=== PATIENT | male | born 1970 | race Hispanic/Latino ===

== ENCOUNTER 2018-06-18 16:05 | Inpatient (IN) | payer OTHER ==
[~2018-06-18] VITALS: Ht 170.2 cm; Wt 118.4 kg
[2018-06-18 16:25] LABS: BASOPHILS % (AUTO) 0.8 % (0.0-5.0); EOSINOPHILS % (AUTO) 2.1 % (0.0-8.0); LYMPHOCYTES % (AUTO) 42.3 % (21.0-51.0); MEAN CORPUSCULAR HEMOGLOBIN 22.8 pg (27.0-33.0); MEAN CORPUSCULAR HGB CONC 30.1 g/dL (32.0-36.0); MEAN CORPUSCULAR VOLUME 75.5 fL (79-99); MONOCYTES % (AUTO) 11.5 % (3.0-13.0); NEUTROPHILS % (AUTO) 43.3 % (40.0-77.0); NUCLEATED RED BLOOD CELLS 0.2 % (0.0-0.19); PLATELET COUNT (AUTO) 166 K/uL (130-400); RED BLOOD CELL COUNT(AUTO) 2.76 MIL/uL (4.50-6.20); RED CELL DISTRIBUTION WIDTH 20.9 % (11.0-15.5); WHITE BLOOD COUNT (AUTO) 5.4 K/uL (4.8-10.8)
[2018-06-18 16:31] LABS: HEMATOCRIT 20.8 % (42-54)
[2018-06-18 16:37] LABS: CREATININE 0.8 mg/dL (0.5-1.5); POTASSIUM 3.3 mmol/L (3.5-5.1)
[2018-06-18 16:44] LABS: ALBUMIN 3.1 g/dL (3.5-5.0); BILIRUBIN,TOTAL 0.8 mg/dL (0.2-1.0); TOTAL PROTEIN, SERUM 8.3 g/dL (6.0-8.3)
[2018-06-18 17:13] LABS: INR 1.2 (0.85-1.15); PARTIAL THROMBOPLASTIN TIME 26.5 SEC (26.3-35.5); PROTHROMBIN TIME 12.6 SEC (9.6-11.6)
[2018-06-18] MEDS ORDERED: FUROSEMIDE 10 MG/ML 4ML VIAL ONE (17:36)
[2018-06-18] MEDS: LACTATED RINGERS 1000ML 1,000 ML IV SCH (18:51)
[2018-06-18] MEDS ORDERED: ONDANSETRON HCL 4 MG/2 ML VIAL IV PRN (19:00)
[2018-06-18] MEDS ORDERED: PANTOPRAZOLE SODIUM 80 MG in SODIUM CHLORIDE 0.9% 100 ML IV SCH (19:16)
[2018-06-18 19:34] LABS: APPEARANCE,URINE Clear (CLEAR); BILIRUBIN,URINE Negative (NEGATIVE); GLUCOSE, URINE (UA) Negative (NEGATIVE); KETONES,URINE Negative (NEGATIVE); LEUKOCYTE ESTERASE ,URINE Negative (NEGATIVE); NITRATE,URINE Negative (NEGATIVE); OCCULT BLOOD,URINE Negative (NEGATIVE); PROTEIN,URINE Negative (NEGATIVE); UROBILINOGEN,URINE 0.2 mg/dL (0.2-1.0)
[2018-06-18 19:36] LABS: COLOR,URINE COLORLESS (YELLOW)
[2018-06-18 19:41] LABS: AMPHET/METH SCREEN,URINE NEGATIVE (NEGATIVE); BARBITURATE SCREEN, URINE NEGATIVE (NEGATIVE); BENZODIAZEPINES SCREEN,URINE NEGATIVE (NEGATIVE); CANNABINOID SCREEN,URINE NEGATIVE (NEGATIVE); COCAINE SCREEN,URINE NEGATIVE (NEGATIVE); OPIATE SCREEN,URINE NEGATIVE (NEGATIVE); PHENCYCLIDINE SCREEN,URINE NEGATIVE (NEGATIVE)
[2018-06-18] MEDS: OSELTAMIVIR PHOSPHATE 75 MG CAP PO SCH (21:00)
[2018-06-18] MEDS ORDERED: OSELTAMIVIR PHOSPHATE 75 MG CAP ONE (22:52)
[2018-06-18 23:42] VITALS: BP 133/74
[2018-06-19] VITALS (29 sets, daily range): BP systolic 111–174; BP diastolic 55–108
[2018-06-19] MEDS ORDERED: DIPH25TA20 PO (00:24)
[2018-06-19] MEDS ORDERED: PHEN177S35 MM (00:24)
[2018-06-19] MEDS ORDERED: ESCI5TAB10 PO (00:24)
[2018-06-19] MEDS ORDERED: NYST100P2 MC (00:24)
[2018-06-19] MEDS ORDERED: FURO40TA5 PO (00:24)
[2018-06-19] MEDS ORDERED: TRAZ-185 PO (00:24)
[2018-06-19] MEDS ORDERED: METO25TA6 PO (00:24)
[2018-06-19] MEDS ORDERED: FOLI1TAB15 PO (00:24)
[2018-06-19] MEDS ORDERED: GABA-531 PO (00:24)
[2018-06-19] MEDS ORDERED: HYDR-3421 PO (00:24)
[2018-06-19] MEDS ORDERED: SPIR25TA6 PO (00:24)
[2018-06-19] MEDS ORDERED: SODIUM CHLORIDE 0.9% 100 ML IV ONE (01:12)
[2018-06-19] MEDS: LACTATED RINGERS 1000ML 1,000 ML IV SCH ×3 (01:34→15:01)
[2018-06-19] MEDS: DIAZEPAM 5 MG TABLET PO PRN ×2 (04:01→09:12)
[2018-06-19 06:21] LABS: HEMATOCRIT 23.1 % (42-54)
[2018-06-19 06:29] LABS: CREATININE 0.7 mg/dL (0.5-1.5)
[2018-06-19 06:31] LABS: POTASSIUM 2.9 mmol/L (3.5-5.1)
[2018-06-19] MEDS: POTASSIUM CHLORIDE 20MEQ/100ML 100 ML IV PRN ×2 (06:39→09:13)
[2018-06-19] MEDS ORDERED: LIDOCAINE HCL-MPF 1% 2ML VIAL IVP PRN ×3 (06:45→08:00)
[2018-06-19] MEDS ORDERED: POTASSIUM CHLORIDE 20 MEQ ERTAB PO PRN ×2 (08:00)
[2018-06-19] MEDS ORDERED: POTASSIUM CHLORIDE 10% ELIXIR 20 MEQ/15 ML UDCUP PO PRN (08:00)
[2018-06-19] MEDS ORDERED: POTASSIUM CHLORIDE 20MEQ/100ML 100 ML IV PRN (08:00)
[2018-06-19] MEDS ORDERED: POTASSIUM CHLORIDE 10MEQ/100ML 100 ML IV PRN (08:00)
--- NOTE | 2018-06-19 08:30 | NUR ---
Dr. Richards returned consult page and was updated on patients status. He ordered to keep patient NPO and schedule him for an egd at 1300.
[2018-06-19] MEDS ORDERED: M.V.I. IV [ADULT] 10 ML, FOLIC ACID 1 MG, THIAMINE HCL 100 MG in SODIUM CHLORIDE 0.9% 1... IV SCH (09:00)
[2018-06-19] MEDS: OSELTAMIVIR PHOSPHATE 75 MG CAP PO SCH ×2 (09:13→21:15)
--- NOTE | 2018-06-19 09:36 | NUR ---
PATIENT CURRENTLY NPO PENDING GI CONSULT. PER NURSE PEREZ, WILL NOTIFY SPEECH THERAPY FOLLOWING RESULTS/RECOMMENDATIONS OF GI CONSULT. Addendum: 06/19/[address] [facility] Amended: Links added.
--- NOTE | 2018-06-19 11:02 | NUR ---
RD Notification received. Patient with GI Bleed. Patient NPO pending GI consult. Patient with morbid obesity with BMI of 40.9. Patient monitored labs: K 2.9, BUN 5. Patient LBM 06/18/18. RD to continue to monitor. Please notify RD as nutritional concerns arise. Thank you. Addendum: 06/19/18 at [address] Amended: Links added.
[2018-06-19] MEDS ORDERED: LORAZEPAM 2 MG/ML 1 ML VIAL IVP PRN (11:45)
--- NOTE | 2018-06-19 12:30 | NUR ---
Patient was taken to endoscopy. Patient stable on RA.
[2018-06-19] MEDS ORDERED: PROPOFOL 10 MG/ML 20ML VIAL IV ONE (14:57)
--- NOTE | 2018-06-19 15:30 | NUR ---
Report received from Joelle Macias RN in endoscopy. Interventions included ligation of esophageal varices. Patient will be on clear liquid diet. She was updated that patient will be going up to room 418. Report was given to Lena Del Rio in 4th floor. Fluids where taken up promptly as well as patients belongings. Helped Lena set up patient. Patient was stable on room air and was able to ambulate to his new bed.
[2018-06-19] MEDS: PROPRANOLOL HCL 10 MG TAB PO SCH (21:15)
[2018-06-19] MEDS: ACETAMINOPHEN 325 MG TAB PO PRN (21:16)
[2018-06-20] VITALS (7 sets, daily range): BP systolic 110–138; BP diastolic 53–74
[2018-06-20 04:26] LABS: BASOPHILS % (AUTO) 0.7 % (0.0-5.0); HEMATOCRIT 23.3 % (42-54); LYMPHOCYTES % (AUTO) 27.1 % (21.0-51.0); MEAN CORPUSCULAR HEMOGLOBIN 24.6 pg (27.0-33.0); MEAN CORPUSCULAR HGB CONC 31.6 g/dL (32.0-36.0); MONOCYTES % (AUTO) 9.7 % (3.0-13.0); NEUTROPHILS % (AUTO) 60.5 % (40.0-77.0); NUCLEATED RED BLOOD CELLS 0.1 % (0.0-0.19); PLATELET COUNT (AUTO) 114 K/uL (130-400); RED BLOOD CELL COUNT(AUTO) 2.99 MIL/uL (4.50-6.20); RED CELL DISTRIBUTION WIDTH 21.2 % (11.0-15.5); WHITE BLOOD COUNT (AUTO) 4.5 K/uL (4.8-10.8)
[2018-06-20 04:35] LABS: CREATININE 0.7 mg/dL (0.5-1.5); POTASSIUM 3.1 mmol/L (3.5-5.1)
--- NOTE | 2018-06-20 08:00 | NUR ---
Seizure pads applied to bedrails as pt is on Librium for ETOH withdrawal.
[2018-06-20] MEDS ORDERED: THIAMINE HCL 100 MG/ML 2ML VIAL IVP SCH (09:00)
[2018-06-20] MEDS: OSELTAMIVIR PHOSPHATE 75 MG CAP PO SCH ×2 (09:19→20:33)
[2018-06-20] MEDS: CHLORDIAZEPOXIDE HCL 25 MG CAP PO SCH (09:19)
[2018-06-20] MEDS: PROPRANOLOL HCL 10 MG TAB PO SCH (09:19)
[2018-06-20] MEDS: PANTOPRAZOLE SODIUM 40 MG TABLET.DR PO SCH (09:19)
[2018-06-20] MEDS ORDERED: DIPHENHYDRAMINE HCL 25 MG CAPSULE PO SCH (13:30)
[2018-06-20] MEDS ORDERED: NYSTATIN MC SCH (13:30)
--- NOTE | 2018-06-20 13:30 | NUR ---
Notified Dr. Gandhi of a soft, fluid filled, bluish discoloration to center of pt's large abdominal scar. MD assessed pt personally. She stated it is probably a varices and does not require further intervention at present, but should be monitored for changes.
[2018-06-20] MEDS: HYDROXYZINE HCL 25 MG TABLET PO SCH ×2 (15:38→20:33)
[2018-06-20] MEDS: GABAPENTIN 300 MG CAPSULE PO SCH ×2 (15:38→15:48)
[2018-06-20] MEDS: POTASSIUM CHLORIDE 10% ELIXIR 20 MEQ/15 ML UDCUP PO PRN (15:40)
[2018-06-20] MEDS: ACETAMINOPHEN 325 MG TAB PO PRN (15:47)
[2018-06-20] MEDS ORDERED: GABA-531 PO (20:02)
[2018-06-20] MEDS: METOPROLOL TARTRATE 25 MG TAB PO SCH (20:33)
[2018-06-20] MEDS: SPIRONOLACTONE 25 MG TAB PO SCH (20:33)
[2018-06-20] MEDS ORDERED: TRAZODONE HCL 50 MG TAB PO SCH (21:00)
[2018-06-21 04:00] VITALS: BP 103/50
[2018-06-21 05:44] LABS: BASOPHILS % (AUTO) 0.6 % (0.0-5.0); EOSINOPHILS % (AUTO) 2.8 % (0.0-8.0); HEMATOCRIT 25.1 % (42-54); LYMPHOCYTES % (AUTO) 31.5 % (21.0-51.0); MEAN CORPUSCULAR HGB CONC 31.8 g/dL (32.0-36.0); MEAN CORPUSCULAR VOLUME 78.6 fL (79-99); MONOCYTES % (AUTO) 8.8 % (3.0-13.0); NEUTROPHILS % (AUTO) 56.3 % (40.0-77.0); NUCLEATED RED BLOOD CELLS 0.2 % (0.0-0.19); PLATELET COUNT (AUTO) 142 K/uL (130-400); RED BLOOD CELL COUNT(AUTO) 3.19 MIL/uL (4.50-6.20); RED CELL DISTRIBUTION WIDTH 21.6 % (11.0-15.5); WHITE BLOOD COUNT (AUTO) 6.5 K/uL (4.8-10.8)
[2018-06-21 06:08] LABS: CREATININE 0.8 mg/dL (0.5-1.5); POTASSIUM 3.5 mmol/L (3.5-5.1)
[2018-06-21] MEDS ORDERED: PHENOL 177 ML BOTTLE PO PRN (06:30)
[2018-06-21 08:00] VITALS: BP 110/60
[2018-06-21] MEDS: GABAPENTIN 300 MG CAPSULE PO SCH ×2 (08:52→14:59)
[2018-06-21] MEDS: SPIRONOLACTONE 25 MG TAB PO SCH (08:52)
[2018-06-21] MEDS: HYDROXYZINE HCL 25 MG TABLET PO SCH ×2 (08:52→15:00)
[2018-06-21] MEDS: METOPROLOL TARTRATE 25 MG TAB PO SCH (08:53)
[2018-06-21] MEDS: PANTOPRAZOLE SODIUM 40 MG TABLET.DR PO SCH (08:53)
[2018-06-21] MEDS: OSELTAMIVIR PHOSPHATE 75 MG CAP PO SCH (08:53)
[2018-06-21] MEDS: CHLORDIAZEPOXIDE HCL 25 MG CAP PO SCH (08:53)
[2018-06-21] MEDS: ACETAMINOPHEN 325 MG TAB PO PRN (08:54)
[2018-06-21] MEDS: POTASSIUM CHLORIDE 10% ELIXIR 20 MEQ/15 ML UDCUP PO PRN ×2 (08:57→15:01)
[2018-06-21] MEDS ORDERED: CITALOPRAM 20 MG TABLET PO SCH (09:00)
[2018-06-21] MEDS ORDERED: THIAMINE HCL 100 MG TABLET PO SCH (09:00)
[2018-06-21] MEDS ORDERED: FOLIC ACID 1 MG TABLET PO SCH (09:00)
[2018-06-21] MEDS ORDERED: FUROSEMIDE 40 MG TABLET PO SCH (09:00)
[2018-06-21] MEDS ORDERED: PANT40TA PO (10:03)
[2018-06-21] MEDS ORDERED: OSEL75 PO (10:03)
[2018-06-21 11:11] VITALS: BP 99/50
--- NOTE | 2018-06-21 11:46 | NUR ---
D/C PLAN CM spoke to pt regarding d/c planning. states he is visiting from [place] and has been staying in his care outside of his friends home. CM asked pt about staying at his friends home temporarily until arrangements can be made at a homeless custodial. Pt states he will be calling his friend to see if he agrees. Pt also states he has no transportation to get to friends home. Pt gave CM permission to call friend Rupert. No answer, left message and pending call back. CM notified nursing and MACHINE ATTENDANT AJ that pt is currently homeless. Unable to discharge at this time until contact made with friend. Addendum: 06/21/18 at 1154 by FERNANDO YOUSSEF Amended: Links added.
--- NOTE | 2018-06-21 12:48 | NUR ---
CM NOTE cm spoke to pts friend Rupert. States pt will be staying with him temporarily and can provide transportation at d/c. nursing updated with above. Addendum: 06/21/18 at 1249 by FERNANDO YOUSSEF CM Amended: Links added.
--- NOTE | 2018-06-21 14:20 | NUR ---
As per admission database, pt has already rec'd flu shot for this season. Addendum: 06/21/18 at 1423 by HAO HART RN RN Amended: Links added.
--- NOTE | 2018-06-21 15:30 | NUR ---
Discharge teaching completed in the room with pt. Emphasis on s/s to monitor for and when to seek emergency care / call 911. Pt is from [place]; unknown how long he will stay in [facility]. Current orders are for 1 week follow up with PCP and Dr. Richards. Provided with a list of local family medicine practitioners and instructed him to select on for a 1 week post hospital follow up. Pt understands he must call for appointments both with a PCP and Dr. Richards on the next business day. New rx for protonix and tamiflu given to pt. Discussed purpose, route, frequency, and duration of treatment, as well as side effects and adverse effects. As per Dr. Ricahrds's recommendations, pt is to be on protonix therapy for 8 weeks, but rx was written for 30 day supply. Pt understands he must follow up with a PCP to obtain a refill rx. Emphasized importance of taking medications exactly as prescribed. PIV removed, tip intact. Dressed with sterile 2x2 and band aid after hemostasis achieved. Telepack removed. Pt wheeled to front [employer] [facility] [employer] by [facility] staff for transport to friend's residence (refer to CM note) via private car. Pt in stable condition at time of discharge.
== END 2018-06-21 15:34 | disposition home or self-care (01) | DRG 193 ==
LOC: EDH 16:05 → OBSVTOIN 18:30 → EDHIP 18:30 → 2BH 22:59 → 4CH 06-19 16:25
PROVIDERS: ADMIT Hospitalist; ATTEND Hospitalist
PROC: 30233N1 Transfusion of Nonautologous Red Blood Cells into Peripheral Vein, Percutaneous Approach (ICD-10-PCS; principal; 2018-06-18)
PROC: 06L38CZ Occlusion of Esophageal Vein with Extraluminal Device, Via Natural or Artificial Opening Endoscopic (ICD-10-PCS; 2018-06-18)
DX: J10.1 Influenza due to other identified influenza virus with other respiratory manifestations (principal); K29.01 Acute gastritis with bleeding; D62 Acute posthemorrhagic anemia; K76.6 Portal hypertension; Z68.41 Body mass index [BMI] 40.0-44.9, adult; I69.354 Hemiplegia and hemiparesis following cerebral infarction affecting left non-dominant side; I85.00 Esophageal varices without bleeding; K70.31 Alcoholic cirrhosis of liver with ascites; E66.01 Morbid (severe) obesity due to excess calories; F14.90 Cocaine use, unspecified, uncomplicated; E78.5 Hyperlipidemia, unspecified; E87.6 Hypokalemia; F32.9 Major depressive disorder, single episode, unspecified; F41.9 Anxiety disorder, unspecified; I11.0 Hypertensive heart disease with heart failure; I25.10 Atherosclerotic heart disease of native coronary artery without angina pectoris; I48.91 Unspecified atrial fibrillation; I50.9 Heart failure, unspecified; K27.9 Peptic ulcer, site unspecified, unspecified as acute or chronic, without hemorrhage or perforation; K29.80 Duodenitis without bleeding; F19.10 Other psychoactive substance abuse, uncomplicated; R79.1 Abnormal coagulation profile; Z93.3 Colostomy status; Z93.2 Ileostomy status; I25.2 Old myocardial infarction; Z82.49 Family history of ischemic heart disease and other diseases of the circulatory system; Z80.42 Family history of malignant neoplasm of prostate; Z80.3 Family history of malignant neoplasm of breast
CPT/HCPCS: 36415; 43244; 71045; 71275; 80048; 80053; 80305; 81003; 82270; 82550; 83880; 84484; 85014; 85018; 85025; 85378; 85610; 85730; 86677; 86850; 86900; 86901; 86922; 87804; 87880; 93005; A5061; C9113; G0378; G0480; J1940; J2405; J2704; J3411; J3480; J3490; J7030; J7120; P9016

== ENCOUNTER 2018-07-01 04:43 | Emergency (ER) | payer OTHER ==
[~2018-07-01 04:43] MED LIST: DIPH25TA20 PO; ESCI5TAB10 PO; FOLI1TAB15 PO; FURO40TA5 PO; GABA-531 PO; HYDR-3421 PO; METO25TA6 PO; NYST100P2 MC; OSEL75 PO; PANT40TA PO; PHEN177S35 MM; SPIR25TA6 PO; TRAZ-185 PO
== END 2018-07-01 05:08 | disposition home or self-care (01) ==
LOC: EDH 04:43
DX: Z02.83 Encounter for blood-alcohol and blood-drug test (principal); F41.9 Anxiety disorder, unspecified; I48.91 Unspecified atrial fibrillation; K74.60 Unspecified cirrhosis of liver; F32.9 Major depressive disorder, single episode, unspecified; E78.5 Hyperlipidemia, unspecified; I10 Essential (primary) hypertension; Z86.73 Personal history of transient ischemic attack (TIA), and cerebral infarction without residual deficits

== ENCOUNTER 2018-07-02 23:00 | Emergency (ER) | payer OTHER ==
[2018-07-02 23:57] LABS: BASOPHILS % (AUTO) 0.7 % (0.0-5.0); EOSINOPHILS % (AUTO) 2.4 % (0.0-8.0); HEMATOCRIT 28.1 % (42-54); LYMPHOCYTES % (AUTO) 22.7 % (21.0-51.0); MEAN CORPUSCULAR HEMOGLOBIN 23.8 pg (27.0-33.0); MEAN CORPUSCULAR HGB CONC 31.7 g/dL (32.0-36.0); MONOCYTES % (AUTO) 8.8 % (3.0-13.0); NEUTROPHILS % (AUTO) 65.4 % (40.0-77.0); PLATELET COUNT (AUTO) 266 K/uL (130-400); RED BLOOD CELL COUNT(AUTO) 3.75 MIL/uL (4.50-6.20); RED CELL DISTRIBUTION WIDTH 22.1 % (11.0-15.5); WHITE BLOOD COUNT (AUTO) 8.4 K/uL (4.8-10.8)
[2018-07-03 00:08] LABS: CREATININE 0.8 mg/dL (0.5-1.5); POTASSIUM 3.3 mmol/L (3.5-5.1)
[2018-07-03 00:14] LABS: ALBUMIN 3.3 g/dL (3.5-5.0); BILIRUBIN,TOTAL 1.4 mg/dL (0.2-1.0)
== END 2018-07-03 00:54 | disposition home or self-care (01) ==
LOC: EDH 23:00
DX: K94.09 Other complications of colostomy (principal); F41.9 Anxiety disorder, unspecified; I48.91 Unspecified atrial fibrillation; E78.5 Hyperlipidemia, unspecified; I10 Essential (primary) hypertension; F32.9 Major depressive disorder, single episode, unspecified; K74.60 Unspecified cirrhosis of liver; Z86.73 Personal history of transient ischemic attack (TIA), and cerebral infarction without residual deficits; Y84.8 Other medical procedures as the cause of abnormal reaction of the patient, or of later complication, without mention of misadventure at the time of the procedure; Y82.8 Other medical devices associated with adverse incidents
CPT/HCPCS: 36415; 80053; 82270; 85025